=== PATIENT | female | born 1985 | race Caucasian/White ===

== ENCOUNTER 2022-11-25 07:14 | Emergency (ER) | payer BC, MEDICAID, SELFPAY | END 2022-11-25 07:50 | disposition left against medical advice (07) | LOC: MADERS 07:14 | DX: N76.4 Abscess of vulva (principal); F17.210 Nicotine dependence, cigarettes, uncomplicated | CPT/HCPCS: 99282 ==

== ENCOUNTER 2023-06-17 16:28 | Emergency (ER) | payer BC, SELFPAY ==
[2023-06-17] MEDS ORDERED: Metoclopramide HCl 10 MG/2 ML VIAL ONE (18:47)
[2023-06-17] MEDS ORDERED: Ketorolac Tromethamine 30 MG/ML VIAL ONE (18:47)
[2023-06-17] MEDS ORDERED: diphenhydrAMINE 50 MG/ML VIAL ONE (18:47)
[2023-06-17] MEDS ORDERED: Sodium Chloride 0.9% 1,000 ML ONE (18:48)
[2023-06-17] MEDS ORDERED: Sodium Chloride 0.9% 50 ML ONE (18:48)
[2023-06-17 19:00] LABS: Band 4 % (5-11); Hemoglobin 14.7 g/dL (12.0-16.0); Lymphocytes 16 % (21-51); MDiff Complete? YES; Mean Corpuscular Hemoglobin 30.4 pg (27.0-31.0); Mean Corpuscular Volume 94.9 fl (78.0-98.0); Mean Platelet Volume 7.4 fL (7.4-10.4); Monocytes 4 % (0-10); Neutrophil 76 % (42-75); Platelet Adequacy Comment Appears Adequate; Platelet Count 316 10x3/uL (130-400); RBC Distribution Width 12.6 % (11.5-14.5); Red Blood Cell (RBC) Count 4.85 mill/uL (4.20-5.40); White Blood Cell (WBC) Count 10.2 10x3/uL (4.8-10.8)
[2023-06-17 19:08] LABS: ALT (SGPT) 19 U/L (8-55); AST (SGOT) 18 U/L (5-34); Albumin 4.9 g/dL (3.5-5.0); Alkaline Phosphatase 73 U/L (40-110); Anion Gap 16 mmol/L (10-20); BUN (Urea Nitrogen) 6 mg/dL (7.0-18.7); Bilirubin, Total 0.8 mg/dL (0.2-1.2); Calc. Creatinine Clearance 0 mL/min (70-130); Calcium 10.3 mg/dL (7.8-10.44); Carbon Dioxide 25 mmol/L (22-29); Chloride 103 mmol/L (98-107); Estimated GFR 107; Globulin 3.6 g/dL (2.4-3.5); Glucose 100 mg/dL (70-105); Potassium 3.6 mmol/L (3.5-5.1); Protein, Total 8.5 g/dL (6.0-8.3); Sodium 140 mmol/L (136-145)
[2023-06-17] MEDS ORDERED: Aspirin Chewable 81 MG TAB ONE (20:27)
== END 2023-06-17 22:02 | disposition short-term general hospital (02) ==
LOC: MADERS 16:28
DX: G43.909 Migraine, unspecified, not intractable, without status migrainosus (principal); F17.210 Nicotine dependence, cigarettes, uncomplicated
CPT/HCPCS: 70450; 80053; 85025; 96361; 96374; 96375; J1200; J1885; J2765; J7050